=== PATIENT | female | born 1955 | race Caucasian/White ===

== ENCOUNTER 2020-09-12 12:41 | Emergency (ER) | payer OTHER, BC ==
[2020-09-12 12:54] VITALS: TEMP 97.6
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
[2020-09-12 14:19] VITALS: BP 165/72; PULSE 62; RESP 18
== END 2020-09-12 14:18 | disposition home or self-care (01) ==
LOC: EC 12:41
DX: M54.2 Cervicalgia (principal); M54.5 Low back pain; F32.9 Major depressive disorder, single episode, unspecified; I10 Essential (primary) hypertension; Z79.899 Other long term (current) drug therapy; Z87.891 Personal history of nicotine dependence; Z88.1 Allergy status to other antibiotic agents; Z88.2 Allergy status to sulfonamides; Z88.8 Allergy status to other drugs, medicaments and biological substances; V43.52XA Car driver injured in collision with other type car in traffic accident, initial encounter; Y92.410 Unspecified street and highway as the place of occurrence of the external cause
CPT/HCPCS: 72100; 72125; 99284

== ENCOUNTER → 2021-08-06 | Outpatient (CLI) | payer BC ==
--- NOTE | 2021-08-06 10:51 | CT ---
EXAMINATION TYPE: CT facial bones wo con DATE OF EXAM: 08/06/2021 COMPARISON: None HISTORY: Acute sinusitis CT DLP: 595 mGycm CONTRAST: 0 mL of Isovue 370 The paranasal sinuses are examined in the axial plane at 2 mm thick sections. Reconstructed images i n the coronal plane were obtained. There is dental amalgam scatter artifact The maxillary sinuses are clear. The ethmoid air cells are clear. The sphenoid sinuses are clear. The frontal sinuses are clear. The septum is evaluated. There is septal deviation to the right. There is a right rolf bullosa There is a prior left uncinate ectomy. Right ostiomeatal unit may have mucosal thickening at the orig in. No suspicious air-fluid levels within the paranasal sinuses are evident. The right maxillary sinu s appears without mucosal thickening. IMPRESSIONS: 1. No suspicious changes to suggest acute or chronic sinusitis. 2. 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
== END | disposition home or self-care (01) ==
LOC: RADCTMAIN 08:16
PROVIDERS: ATTEND Internal Medicine Geriatric Medicine
DX: J34.2 Deviated nasal septum (principal)
CPT/HCPCS: 70486

== ENCOUNTER → 2022-06-03 | Outpatient (CLI) | payer BC ==
--- NOTE | 2022-06-04 10:35 | MM ---
Reason for Exam: Screening (asymptomatic). Last mammogram was performed 6 year(s) and 0 month(s) ago. Patient History: Menarche at age 9. First Full-Term at age 24. Postmenopausal. Patient used Hormonal Contraceptives for 2 years. Risk Values: Anahi 5 year model risk: 2.1%. NCI Lifetime model risk: 6.4%. Prior Study Comparison: 12/24/2011 Screening Mammogram, [facility]. 10/21/2013 Screening Mammogram, [facility]. 06/06/2016 Bilateral Screening Mammogram, [facility]. Tissue Density: There are scattered fibroglandular densities. Findings: Analyzed By CAD. No suspicious groups of microcalcifications, spiculated or lobular masses, architectural distortion or other secondary signs of malignancy are mammographically apparent. Overall Assessment: Benign, BI-RAD 2 Management: Screening Mammogram of both breasts in 1 year. A negative mammogram report should not preclude additional follow up of suspicious palpable abnormalities. Patient should continue monthly self breast exam. A clinical breast exam by your physician is recommended on an annual basis and results should be correlated with mammographic findings. Electronically signed and approved by: Kevin Horta D.O. Radiologis
== END | disposition home or self-care (01) ==
LOC: RADMAMWWP 13:42
PROVIDERS: ATTEND Internal Medicine Geriatric Medicine
DX: Z12.31 Encounter for screening mammogram for malignant neoplasm of breast (principal); Z78.0 Asymptomatic menopausal state
CPT/HCPCS: 77063; 77067

== ENCOUNTER → 2022-06-18 | Outpatient (CLI) | payer BC ==
--- NOTE | 2022-06-18 19:00 | BD ---
EXAMINATION TYPE: Axial Bone Density DATE OF EXAM: 06/18/2022 COMPARISON: 06/06/2016 CLINICAL HISTORY: 67 years year old Female. ICD-10 CODE: M81.0 OSTEOPOROSIS Height: 63.5 IN Weight: 242 LBS FRAX RISK QUESTIONS: History of Fracture in Adulthood: LT WRIST AGE 65 RISK FACTORS HISTORY OF: History of Wrist Fracture: LT WRIST AGE 65 Active: YES Diet low in dairy products/other sources of calcium: YES Postmenopausal woman: AGE 58 MEDICATIONS: Additional Medications: LISINOPRIL, WATER PILL, WELLBUTRIN, OMEPRAZOLE, PRESERVISION, MULTI VIT EXAM MEASUREMENTS: Bone mineral densitometry was performed using the [employer]. Bone mineral density as measured about the Lumbar spine is: ----- L1-L4(G/cm2): 1.166 T Score Values are as follows: ----- L1: -0.6 ----- L2: -1.0 ----- L3: -0.3 ----- L4: 1.3 ----- L1-L4: -0.1 Bone mineral density has: Increased 3.5% since study of: 06/06/2016 Bone mineral density about the R hip (g/cm2): 0.755 Bone mineral density about the L hip (g/cm2): 0.652 T Score values are as follows: -----R Neck: -2.0 -----L Neck: -2.8 -----R Total: -1.1 -----L Total: -1.5 Bone mineral density has: Decreased -5.8% since study of: 06/06/2016 FRAX%s: The graph provided illustrates a 14.3 chance for a major osteoporotic fx and a 3.8 chance for the hips probability for fx in 10 years time. IMPRESSION: Osteoporosis (T Score less than -2.5). There is increased fracture risk and therapy is usually indicated based on age. Re-Screen 1-2 years. NOTE: T-SCORE=SD OF THE YOUNG ADULT MEAN.
== END | disposition home or self-care (01) ==
LOC: RADBDWWP 11:17
PROVIDERS: ATTEND Internal Medicine Geriatric Medicine
DX: M81.0 Age-related osteoporosis without current pathological fracture (principal)
CPT/HCPCS: 77080

== ENCOUNTER → 2023-07-01 | Outpatient (CLI) | payer BC ==
--- NOTE | 2023-07-02 08:46 | MM ---
Reason for Exam: Screening (asymptomatic). Last screening mammogram was performed 12 month(s) ago. Patient History: Menarche at age 9. First Full-Term at age 24. Postmenopausal. Patient used Hormonal Contraceptives for 2 years. Risk Values: Anahi 5 year model risk: 2.1%. NCI Lifetime model risk: 6.1%. Prior Study Comparison: 10/21/2013 Screening Mammogram, [facility]. 06/06/2016 Bilateral Screening Mammogram, [facility]. 06/03/2022 Bilateral MG 3D screening mammo w/cad, [facility]. Tissue Density: The breast tissue is almost entirely fat. Findings: Analyzed By CAD. There is no suspicious group of microcalcifications or new suspicious mass in either breast. Overall Assessment: Negative, BI-RAD 1 Management: Screening Mammogram of both breasts in [address] [facility] will attempt to contact patient to return for supplemental views and ultrasound if indicated. Patient should continue monthly self-breast exams. A clinical breast exam by your physician is recommended on an annual basis. This exam should not preclude additional follow-up of suspicious palpable abnormalities. Note on Anahi scores and lifetime risk: 1. A Anahi score greater than 3% is considered moderate risk. If this is the case, consider specialist referral to assess eligibility for a risk reducing agent. 2. If overall lifetime risk for the development of breast cancer is 20% or higher, the patient may qualify for future screening with alternating mammogram and breast MRI. Electronically signed and approved by: Sheng Dugan DO
== END | disposition home or self-care (01) ==
LOC: RADMAMWWP 13:57
PROVIDERS: ATTEND Internal Medicine Geriatric Medicine
DX: Z12.31 Encounter for screening mammogram for malignant neoplasm of breast (principal); Z78.0 Asymptomatic menopausal state
CPT/HCPCS: 77063; 77067

== ENCOUNTER → 2024-10-20 | Outpatient (CLI) | payer BC ==
--- NOTE | 2024-10-21 12:07 | MM ---
Reason for Exam: Screening (asymptomatic). Last mammogram was performed 1 year(s) and 4 month(s) ago. Patient History: Menarche at age 9. First Full-Term at age 24. Postmenopausal. Patient used Hormonal Contraceptives for 2 years. Risk Values: Anahi 5 year model risk: 2.1%. NCI Lifetime model risk: 5.9%. Prior Study Comparison: 06/06/2016 Bilateral Screening Mammogram, [facility]. 06/03/2022 Bilateral MG 3D screening mammo w/cad, [facility]. 07/01/2023 Bilateral MG 3D screening mammo w/cad, [facility]. Tissue Density: There are scattered areas of fibroglandular density. Findings: Analyzed By CAD. There is no suspicious group of microcalcifications or new suspicious mass in either breast. Overall Assessment: Negative, BI-RAD 1 Management: Screening Mammogram of both breasts in 1 year. . Patient should continue monthly self-breast exams. A clinical breast exam by your physician is recommended on an annual basis. This exam should not preclude additional follow-up of suspicious palpable abnormalities. Note on Anahi scores and lifetime risk: 1. A Anahi score greater than 3% is considered moderate risk. If this is the case, consider specialist referral to assess eligibility for a risk reducing agent. 2. If overall lifetime risk for the development of breast cancer is 20% or higher, the patient may qualify for future screening with alternating mammogram and breast MRI. [facility], , 10/21/2024 12:04 PM. Electronically signed and approved by: Greg Mcfarlane M.D. Radiologis
--- NOTE | 2024-10-21 14:28 | BD ---
EXAMINATION TYPE: Axial Bone Density DATE OF EXAM: 10/20/2024 CLINICAL HISTORY: 69 years old Female. ICD-10 CODE: M810 AGE RELATED OSTEO , Additional History: Height: 63 Weight: 215 FRAX RISK QUESTIONS: Family History (Parent hip fracture): no History of Fracture in Adulthood: yes Secondary Osteoporosis: no RISK FACTORS HISTORY OF: History of Lt Wrist Fracture: yes When: age 65 Surgery to Spine/Hip(right/left)/Wrist (right/left): no MEDICATIONS: Thyroid Medications: no Osteoporosis Medications: no EXAM MEASUREMENTS: Bone mineral densitometry was performed using the [employer]. Bone mineral density as measured about the Lumbar spine is: ----- L1-L4(G/cm2): 1.137 T Score Values are as follows: ----- L1: -1.0 ----- L2: -1.0 ----- L3: 0.3 ----- L4: 0.0 ----- L1-L4: -0.4 Z Score Values are as follows: ----- L1: -0.4 ----- L2: -0.4 ----- L3: 0.9 ----- L4: 0.6 ----- L1-L4: 0.2 Bone mineral density has: Decreased -11.2% since study of: 06/18/2022 Bone mineral density about the R hip (g/cm2): 0.732 Bone mineral density about the L hip (g/cm2): 0.892 T Score values are as follows: -----R Neck: -2.9 -----L Neck: -1.6 -----R Total: -2.2 -----L Total: -0.9 Z Score values are as follows: -----R Neck: -1.9 -----L Neck: -0.5 -----R Total: -1.4 -----L Total: -0.2 Bone mineral density has: Decreased -16.2% since study of: 06/18/2022 FRAX%s: The graph provided illustrates a 25.5% chance for a major osteoporotic fx and a 7.9% chance f or the hips probability for fx in 10 years time. IMPRESSION: Osteopenia (T Score between -2.5 and -1). There is slightly increased risk of fracture and the patient may be considered for treatment. Re-Screen 2-5 years. NOTE: T-SCORE=SD OF THE YOUNG ADULT MEAN. [facility], , 10/21/2024 2:26 PM
== END | disposition home or self-care (01) ==
LOC: RADBDWWP 15:21
PROVIDERS: ATTEND Internal Medicine Geriatric Medicine
DX: Z12.31 Encounter for screening mammogram for malignant neoplasm of breast (principal); R92.323 Mammographic fibroglandular density, bilateral breasts; M85.89 Other specified disorders of bone density and structure, multiple sites; Z78.0 Asymptomatic menopausal state
CPT/HCPCS: 77063; 77067; 77080